=== PATIENT | female | born 1995 | race Caucasian/White ===

== ENCOUNTER 2023-03-05 10:02 | Emergency (ER) | payer OTHER, BC, SELFPAY ==
[2023-03-05 10:14] VITALS: BP 110/69; PULSE 64; RESP 16; TEMP 36.4; O2SAT 100
--- NOTE | 2023-03-05 10:20 | ED.WOUNDLAC ---
HPI - Wound/Laceration General Chief Complaint: Wound/Laceration Stated Complaint: Cat Bite Time Seen by Provider: 03/05/23 10:09 Source: patient Mode of arrival: ambulatory Limitations: no limitations History of Present Illness HPI narrative: Farnaz is a 27-year-old male patient presenting to the clinic today with complaints of a cat bite to the right index finger. She reports her cat bit her yesterday. Has close puncture wounds to the volar and dorsal index finger with redness and swelling. States her finger is throbbing. Tetanus is up-to-date per patient Related Data Home Medications Medication Instructions Recorded Confirmed escitalopram oxalate 10 mg tablet mg 03/05/23 Allergies Allergy/AdvReac Type Severity Reaction Status Date / Time amoxicillin Allergy Mild Hives Verified 03/05/23 10:14 Review of Systems Review of Systems: Pertinent positives per HPI. Patient denies any fever, chills, rash, headache, visual changes, dizziness, cough, runny nose, sore throat, shortness of breath, chest pain, palpitations, nausea, vomiting, diarrhea, constipation, abdominal pain, or any urinary issues. PMFSH Comments At the time of my signature, I reviewed and agree with the nursing past medical, surgical, social, and family history. There is no relevant family history pertinent to the patient complaint. Exam Narrative: General: Well-developed, well nourished, in no apparent distress Head: Normocephalic, atraumatic. Cardio: Regular rate and rhythm, s1 and s2 normal, no murmur appreciated. Resp: Clear to auscultation bilaterally, no rhonchi, rales, wheezing or rubs. Integumentary: [place], warm, and dry, intact without lesion, closed puncture wounds to the dorsal and volar aspect of the medial right index finger with redness, erythema, and swelling Course Course Emergency Course: Portions of this record may have been created with voice recognition software. Level of Care: Express Care Visit Vital Signs Vital signs: Vital Signs Temperature 36.4 C L 03/05/23 10:14 Pulse Rate 64 03/05/23 10:14 Respiratory Rate 16 03/05/23 10:14 Blood Pressure 110/69 03/05/23 10:14 Pulse Oximetry 100 03/05/23 10:14 Oxygen Delivery Room Air 03/05/23 10:14 Temperature 36.4 C L 03/05/23 10:14 Pulse Rate 64 03/05/23 10:14 Respiratory Rate 16 03/05/23 10:14 Blood Pressure 110/69 03/05/23 10:14 Pulse Oximetry 100 03/05/23 10:14 Oxygen Delivery Room Air 03/05/23 10:14 Vital signs reviewed MDM - Wound/Laceration MDM Narrative Medical decision making narrative: At the time of visit patient is resting comfortably on exam table. Patient is allergic to penicillin so prescription for doxycycline and metronidazole was sent to the pharmacy. Supportive measures were discussed with the patient she voiced understanding discharge instructions agrees to treatment plan. Differential Diagnosis Differential diagnosis: Likely other (Infected cat bite, puncture wound, wound infection) Discharge Plan Discharge Clinical Impression: Cat bite of finger Qualifiers: Encounter type: initial encounter Qualified Code(s): S61.259A - Open bite of unspecified finger without damage to nail, initial encounter Patient Disposition: Home, Self-Care Condition: Stable Instructions: Antibiotic Form, Animal Bite (ED) Additional Instructions: Take doxycycline and metronidazole as prescribed Keep wound clean and dry Watch for signs and symptoms of worsening infection- redness, streaking, swelling, purulent discharge, or increase in pain. Follow up with your PCP for suture removal or return to the Express care. Prescriptions: New doxycycline hyclate 100 mg capsule 100 mg PO BID 7 Days Qty: 14 0RF metronidazole 500 mg tablet 500 mg PO Q8H 7 Days Qty: 21 0RF No Action escitalopram oxalate 10 mg tablet Follow-up/Referrals: UNKNOWN,DOCTOR [Non-Staff] - Time of Dispos
== END 2023-03-05 10:27 | disposition home or self-care (01) ==
PROVIDERS: Emergency Provider Nurse Practitioner Family
DX: S61.230A Puncture wound without foreign body of right index finger without damage to nail, initial encounter (principal); W55.01XA Bitten by cat, initial encounter; F41.9 Anxiety disorder, unspecified
CPT/HCPCS: 99213; G0463

== ENCOUNTER 2025-01-31 04:36 | Emergency (ER) | payer OTHER, SELFPAY ==
--- OUTSIDE RECORDS SUMMARY | 2025-01-31 04:38 | XMS_ITS | Clinical Summary ---
Author Organization [facility] Address [address] [place] [address] Phone Care Team Providers Care Mixing Picker Tender Name Role Phone Daryl Powers MD Primary Care Provider [phone] Allergies Active Allergy Reactions Criticality Noted Date Comments Amoxicillin Hives High 06/09/2015 Medications escitalopram oxalate (LEXAPRO) 20 mg tabletIndication s:Generalized anxiety disorder with panic attacks Take 1 Tablet (20 mg) by mouth daily. 100 Tablet 3 11/18/2023 Active Active Problems Patient Care Coordination No te Formatting of this note migh t be different from the original. Permission to speak with Margot Martinez (mother) and Jl Beavers (father) 09/30/15 Problem Noted Date Diagnosed Date Primary insomnia 07/30/2019 Generalized anxiety disorder with panic attacks 04/06/2019 Overview (04/10/2020): - 2019: Episodes likely triggered by plans to go back to school - 03/2019: Started on Lexapro - 12/2019: In remission; and Lexapro stopped - 03/2020: Lexapro restarted when symptoms recurred Factor V Leiden 09/30/2015 Overview (09/30/2015): Tested because of mother's history. Resolved Problems Problem Noted Date Diagnosed Date Resolved Date Pilonidal cyst 12/05/2018 11/20/2023 Immunizations Immunization Administration Dates Next Due (ADACEL/BOOSTRIX)(10 YR UP) TDAP VACCINE, 0.5ML, IM 02/12/2018 Family History Medical History Relation Name Comments Hypertension Father Jl Beavers Other Mother Margot Martinez DVT history Relation Name Status Comments Father Jl Beavers Alive Mother Margot Martinez Alive Social History Tobacco Use Types Packs/Day Years Used Date Smoking Tobacco: Never Smokeless Tobacco: Never Tobacco Cessation:Counseling Given: No Alcohol Use Standard Drinks/Week Comments No 0 (1 standard drink = 0.6 oz pur e alcohol) Comments No Sex and Gender Information Value Date Recorded Sex Assigned at Not on file Legal Sex Female 11:17 AM CDT Gender Identity Not on file Sexual Orientation Not on file Last Filed Vital Signs Vital Sign Reading Time Taken Comments Blood Pressure 105/69 11/18/2023 11:14 AM CDT Pulse 70 11/18/2023 11:14 AM CDT Temperature 37.2 C (99 F) 12/05/2018 2:46 PM CDT Respiratory Rate 16 08/17/2022 9:48 AM 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 Oxygen Saturation 99% 11/18/2023 11:14 AM CDT Inhaled Oxygen Concentration - - Weight 93.4 kg (206 lb) 11/18/2023 11:14 AM CDT Height 170.2 cm (5' 7) 11/18/2023 11:14 AM CDT Body Mass Index 32.26 11/18/2023 11:14 AM CDT Plan of Treatment Health Maintenance Due Date Last Done Comments HEPATITIS B VACCINES (1 of 3 - 19+ 3-dose series) 2014 HPV/Cotest (-) 2016 CERVICAL CANCER SCREENING 05/07/2024 PAP SMEAR 05/07/2024 05/07/2021 (Prev iously completed) Preventative Visit- Commercial 07/18/2024 11/18/2023, 10/21/2023, 08/17/2022, Additional history exists INFLUENZA VACCINE (#1) 2025 08/17/2022 DTAP/TDAP/TD VACCINES (2 - Td or Tdap) 02/13/2028 02/12/2018 HPV VACCINES Aged Out No longer eligi ble based on patient's age to complete this topic Insurance [facility] [id number] Care Teams Mixing Picker Tender Relationship Specialty Start Date End Date Daryl Powers MD [address] [phone] PCP - General Internal Medicine 09/30/15
--- OUTSIDE RECORDS SUMMARY | 2025-01-31 04:38 | XMS_ITS | Continuity of Care Document ---
Author Organization [facility] Address [address] [place] [address] Phone Care Team Providers Care Tanning Solution Maker Name Role Phone Roel Espino MD Unavailable Unavailable Allergies, Adverse Reactions, Alerts Substance Reaction Status Criticality amoxicillin rash Active No Information Medications Medication Instructions Dosage Effective Dates (start - stop) Status Comments Mobic 15 mg tablet take 1 tablet by ora l route every day - Active Procedures Procedure Date RADEX KNE 3 VIEWS OFFICE/OUTPATIENT VISIT EST OFFICE/OUTPATIENT VISIT EST RADEX KNE 3 VIEWS OFFICE/OUTPATIENT VISIT NEW MU Reporting MU Reporting OFFICE/OUTPATIENT VISIT EST Advance Directives Directive Yes / No Effective Date File Name No Information Encounters Encounter Description Practice Location Reason(s) For Visit Diagnoses Date Provider Providers Copied on Encounter [facility], [address], [address], [place] tel:[phone] [facility] No Information 0 Kenzie Sevilla. [address] [place], [place], [id number] . tel: [phone] OFFICE/OUTPA TIENT VISIT EST [facility], [address], [place], [address], [place] tel:[phone] [facility] Pain in right kneePatellar tendinitis of right kneeBody mass index (BMI) 30.0-30.9, adult Aug-2 1-202 0 Fissel Roel. [address] [facility] [place], [place], [id number] . tel:[phone] OFFICE/OUTPA TIENT VISIT EST [facility], [address] [facility] [address] [address], [place], [address], [place] tel:[phone] [facility] Left knee pain, unspecified chronicity 0-201 9 Prakash Garcia. [address], [place], [place], [address] . tel:[phone] OFFICE/OUTPA TIENT VISIT NEW [facility], [address], [address], [place] tel:[phone] [facility] Left knee pain, unspecified chronicityBody mass index (BMI) 27.0-27.9, adult 9-201 9 Fissel Roel. [address] [facility], [place], [place], [id number] . tel:[phone] Referring Provider: Daryl De Jesus, [address] [facility] [address], [place], [address]. tel:[phone] [facility], [address] [address], [place], [address], [place] tel:[phone] [facility] Right knee pain (chief complaint) Pain in joint involving lower legChondromalacia of patella 5-201 2 Jesus Manuel Urena. [address] [facility], [place], [place], [address] . tel:[phone] Referring Provider: Jl De Jesus, [address] [place], [address] . tel:[phone] OFFICE/OUTPA TIENT VISIT EST [facility], [address] [address], [place], [address], [place] tel:[phone] [facility] right knee pain (chief complaint) Patellar tendinitis 2-201 2 Fissel Roel. [address] [facility], [place], [place], [address] . tel: [phone] Referring Provider: Jl De Jesus, [address], [place], [address] . tel:[phone] [facility], [address], [place], [address], tel:[phone] [facility] No Information 2 Jesus Manuel Urena. [address], [place], [place], [address] . tel: [phone] Family History Family Member Type Diagnosis Age At Onset Problem (finding) Family history of Facto r 5 Leiden Father Problem (finding) hypertension Mother Problem (finding) DVT Problem (finding) Family history of asthm a Payers Payer name Insurance type Covered constitution party ID Authoriza tion(s) Blue Access PPO E2 OT [id number] Social History Type Description Quantity Date Captured Comments Alcohol Use Details Unknown Caffeine Use Details Unknown Tobacco Use Status No Information Smoking Status No Information Sex Female Chief Complaint And Reason For Visit No Information Reason For Referral Reason For Referral No Information Plan Of Treatment Date Type Action Status Goal Lifestyle education regardin g diet completed Referral Ordered: RADEX KNE 3 VIEWS RT ordered Referral Ordered: RADEX KNE 3 VIEWS LT ordered Referral Ordered: RADEX KNE 3 VIEWS RT knee ordered History Of Present Illness Encounter Date Complaint History Of Prese nt Illness No Information Functional Status Date Functional Assessmen t No Information Instructions Date Instruction Additional Infor mation Discussed treatment options Rela david to Patellar tendinitis of right knee Call for increase in pain Relate d to Patellar tendinitis of right knee Giving encouragement to exercise Related to Body mass index (BMI) 30.0-30.9, adult Take medication as directed. Rel ated to Left knee pain, unspecified chronicity Discussed treatment options Rela david to Left knee pain, unspecified chronicity Call for increase in pain Relate d to Left knee pain, unspecified chronicity Lifestyle education regarding di et Related to Body mass index (BMI) 27.0-27.9, adult Home exercise program. Related t o Left knee pain, unspecified chronicity Discussed treatment options Rela david to Left knee pain, unspecified chronicity Call for increase in pain Relate d to Left knee pain, unspecified chronicity Take medication as directed. Rel ated to Left knee pain, unspecified chronicity Activity as tolerated Wear brace as instructed Assessments Type Assessment Date No Information Patient Care Teams Name Effective Dates (start - stop) Status Members No Information
--- OUTSIDE RECORDS SUMMARY | 2025-01-31 04:38 | XMS_ITS | Data Portability ---
Author Organization [facility] [place] Address [address] [place] [address] Care Team Providers Care Wafer Fabrication Technician Name Role Phone REYNALDO MATA Primary Care Provider Assessment Encounter Date Assessment Date Assessment LastModified by Organization Details LastModified Time 06/27/2024 06/27/2024 Annual gynecological exam performed. Patient will come back in a year unless there are new symptoms. [email or web address] Not available 06/27/2024 10:33:59 Plan of Treatment Reminders Order Date Submit Date Provider Last Modified By Organization Details Last Modified Time Details Appointments [facility] 2024 09:30A M BRIDGETTE BOLAÑOS NP Not available Not available Not available Lab pap, IG + HR HPV - HPV regardles s but if HPV is positive need subtyping 16,18/45 2023 12 024 [facility] (Lab), [address] [facility], [place], [address], 07/07/2024 05:07:01 Referral None recorded. Procedures None recorded. Surgeries None recorded. Imaging None recorded. Medication Orders None recorded. Patient TargetsNo targets recorded. Patient InstructionsNo instructions recorded. Reason for Referral None Reported. Results Created Date Observation Date Name Description Value Unit Range Abnormal Flag Note LastModifiedBy Organization Detail LastModifiedTime 06/27/20 24 06/27/2024 IMAGE GUIDE D PAP AND HPV REGAR DLESS image guided Pap, HPV regardless of Pap result SEE RESULT S BELOW CASE REPOR T: Cytol ogy Gynec ologi brayden Repor t Case: [id number] Autho clarence fabian Provi rico: Dermo dy, Bridgette , ANP, DEPALLETIZER OPERATOR Colle cted: 06/27 1000 Order ing Locat ion: [place] [facility]o shahriar Recei roxanne: 06/28 0146 First Ezra n: Rishi soni, Albert whitley, CT Speci men: Ezra german Pap - Image d, Cervi x STATE MENT OF ADEQU ACY: Satis facto ry for evalu ation Trans forma tion zone compo nent prese nt ----- ----- ----- ----- ----- ----- ----- ----- ----- ----- ----- ----- ----- ----- ----- ----- ----- ---- FINAL DIAGN OSIS: Negat andrae for Intra epith elial Randa saavedra or Radha forte (NIL) . 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 COMME NT: This speci men was revie wed by a Cytot echno logis t and/o r Patho logis t (as indic ated in this repor t) after evalu ation using the Thinp rep Imagi ng Syste m. CLINI BRAYDEN INFOR MATIO N: Menst rual Statu s: LMP (if appli cable ): Clini brayden Histo ry/Pr eviou s Pap: Type of Neopl valentina (if appli cable ): Signi fican t Clini brayden Findi ngs: Other Histo ry: Hormo marc (if appli cable ): PAP EDUCA TYRA L NOTE: The Pap Test is a scree monserrat test with an inher ent false negat andrae rate. Liqui d-bas ed sampl ing may decre ase, but will not elimi romel, false negat andrae resul ts. A negat andrae resul t does not precl ude the prese nce and/o r devel opmen t of disea se, since the prese nce of abnor mal cells in the sampl e depen ds on the locat ion of the lesio n and sampl ing techn ique. Ambreen nued regul ar scree monserrat is the best metho d of cance r preve ntion . If repor david cytol ogic findi ng do not corre late with physi brayden and/o r histo rical findi ngs, furth er inves tigat ion is recom blessing d, as clini orly warra nted. Not Available [facility] (Lab) [address] [facility], [place], [address], 07/07/2024 05:07:01 Result Notes None recorded. Medical Equipment None Reported. Allergies Allergen ID Allergen Name Allergen Category Reaction Reaction Severity Criticality Documentation Date Start Date Code Code System Note Provider Name and Address Organization Details Recorded Time 14007 amoxicill in medicatio n hives mild Not available 06/27/2024 723 RxNorm Kisha Lockwood [facility] 10:26:39 Medications Name Sig Start Date Stop Date Status Note LastModified by Organization Details LastModified Time escitalopram 10 mg tablet 2023 completed Not Available Not Available Not Available escitalopram 20 mg tablet active Not Available Not Available Not Available Vitals Date Recorded Body height Body mass index (BMI) Body weight Systolic And Diastolic Provider Name and Address Organization Details Last Updated DateTime 06/27/2024 170.18 cm 33 kg/m2 40609.99 g 108/77 mm[Hg] Kisha Lockwood [facility] 06/27/2024 10:30:04 Social History Question Answer Notes LastModified by Organizat ion Details LastModified Time Do You Have An Advance Directive? No [email or web address] Information n ot available 06/27/2024 Are You Blind Or Do You Have Difficulty Seeing? No [email or web address] Information not available 06/27/2024 What Is Your Level Of Caffeine Consumption? Moderate [email or web address] Information not available 06/27/2024 How Much Tobacco Do You Chew? None [email or web address] Information not available 06/27/2024 In The 14 Days Before Symptom Onset, Have You Had Close Contact With A Laboratory-confirme d COVID-19 While That Case Was Ill? No [email or web address] Information n ot available 06/27/2024 In The 14 Days Before Symptom Onset, Have You Had Close Contact With A Person Who Is Under Investigation For COVID-19 While That Person Was Ill? No [email or web address] Information not available 06/27/2024 Have You Been To An Area Known To Be High Risk For COVID-19? No [email or web address] Information not available 06/27/2024 Are You Deaf Or Do You Have Serious Difficulty Hearing? No [email or web address] Information not available 06/27/2024 What Type Of Diet Are You Following? REGULAR [email or web address] Information n ot available 06/27/2024 What Is The Highest Grade Or Level Of School You Have Completed Or The Highest Degree You Have Received? [id number] [email or web address] Information not available 06/27/2024 Are There Any Guns Present In Your Home? Yes Information not available 06/27/2024 Do You Use Protection During Sex? No [email or web address] Information not available 06/27/2024 Do You Use Your Seat Belt Or Car Seat Routinely? Yes [email or web address] Information not available 06/27/2024 Do You Have Smoke And Carbon Monoxide Detectors In Your Home? Yes [email or web address] Information not available 06/27/2024 How Much Tobacco Do You Smoke? No [email or web address] Information not available 06/27/2024 Do You Use Sunscreen Routinely? Yes [email or web address] Information not available 06/27/2024 Have You Used IV Drugs? No [email or web address] Information not available 06/27/2024 Sex: Unknown Functional Status Question Answer Note LastModified by Organizat ion Details LastModified Time Do you use any illicit or recreational drugs? No [email or web address] Information not available 06/27/2024 What is your level of alcohol consumption? None [email or web address] Information not available 06/27/2024 Are you able to walk? 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 None [email or web address] Information not available 06/27/2024 Mental Status Question Answer Note LastModified by Organization D etails LastModified Time Do you feel stressed (tense, restless, nervous, or anxious, or unable to sleep at night)? [id number] Information not available 06/27/2024 Family History Relationship Description Onset Age of this Age Resolved Age Notes LastModified by Organization Details LastModified Time Mother Blood coagulation disorder [email or web address] Not available 2023 10:26:39 Maternal Aunt Blood coagulation disorder [email or web address] Not available 2023 10:26:39 Maternal Grandmother Blood coagulation disorder [email or web address] Not available 2023 10:26:39 Maternal Grandfather Blood coagulation disorder [email or web address] Not available 2023 10:26:39 Maternal Grandfather Malignant neoplasm of liver [email or web address] Not available 2023 10:37:07 Father Hypertensive disorder [email or web address] Not available 2023 10:26:39 Paternal Grandfather Malignant neoplasm of prostate [email or web address] Not available 2023 10:36:57 Medical History Condition Response Anxiety Disorder Y Hematologic disorders Y Gynecological History Statement/Question Response Flow Moderate Date of LMP 06/19/2024 On BCP's at Conception? N N Was last menstrual period normal Y STIs/STDs N HPV Vaccine Y Duration of Flow (days) 3 Current Control Method None Frequency of Cycle (Q days) 4 Sexually Active? Y Age of first menstrual cycle 13 Date of Last Pap Smear Sexual Problems? N LMP Definite N Obstetrics History GPAL:G 0 P 0 0 0 0 Past Encounters Encounter ID Performer Location Encounter Start Date Encounter Closed Date Diagnosis/Indication Diagnosis SNOMED-CT Code Diagnosis ICD10 Code Diagnosis Note [id number] Winston Olivares MD [place] [address] [address] 06/27/2024 10:19:22 06/27/2024 10:51:15 Gynecologic examination 17561457 Z01.419 Annual gynecologi brayden exam performed. Patient will come back in a year unless there are new symptoms. Suggest Calcium with Vitamin D if not eating in diet. Patient advised to get annual flu shot. Recommend yearly physicals and perform monthly breast exams. Genetic testing is available for patients with family history of cancer. Engage in safe sexual practices, use condoms. Encouraged to have daily exercise. Avoid tobacco and illicit drugs, moderation of alcohol. If BMI greater than 25 dietary consult advised. If you have any questions please call or email. Pap smear - pap w/ HPV collected STI testing - declined Health Concerns Section Related Observation LastModified by Organization Detai ls LastModified Time None Recorded Concern Status LastModified by Organization Details LastModified Time None Recorded Advance Directives Directive N: Payers Insurance Date Sequence Insurance Name Policy Number Policy Cook Covered Member ID Cook Member ID Guarantor Name 06/27/2024 1 [employer] (PPO) Farnaz De La Torre [id number] Farnaz De La Torre 06/30/2024 1 [facility] - [employer] - [employer] (PPO) [id number] Farnaz De La Torre [id number] Farnaz De La Torre Notes Date Note Type Note Provider Name and Address Organization Details Recorded Time 06/27/2024 text/html Annual GYNReport ed bypatient.Menstrua l cycle:Normal menses Urinary symptoms:No hematuria; No incontinence Vulva:No genital lesion Vagina:Normal vaginal discharge Breast:No breast pain; No breast lump; No nipple discharge Current Contraception:Cond oms; Not on control - uses condoms Sexual complaints:No sexual complaints; No pain during intercourse; Normal libido Menopausal Symptoms:No menopausal symptoms; Normal vaginal lubrication Psychological symptoms:No depression; No anxiety; No PMDD New patient presents to establish care.Hx Factor V Leiden - prefers to not be on hormonal BC. Uses condoms.Denies concerns today. Kisha churchill [place] - [facility] 06/27/2024 10:49:15 OBGyn Episode No OBEpisode recorded.
[2025-01-31 04:40] VITALS: BP 124/74; PULSE 88; RESP 13; TEMP 36.5; O2SAT 99
--- NOTE | 2025-01-31 05:11 | ED.ANIMALBIT ---
HPI - Animal Bite General Chief Complaint: Animal Bite Stated Complaint: Racoon bite Time Seen by Provider: 01/31/25 04:51 History of Present Illness HPI narrative: 29-year-old female presenting to the ER for recommend bite that occurred just prior to arrival. Very superficial bites to the left inner thigh. Patient was trying to get her dog away from the raccoon and inadvertently got bitten. Unclear if her tetanus is up-to-date. Never had rabies shots or vaccines before. No systemic symptoms, no bleeding, was otherwise in her normal state of health. Related Data Home Medications ?Medication ?Instructions ?Recorded ?Confirmed ?Last Taken ?Type escitalopram oxalate 10 mg tablet mg 03/05/23 Unknown History Allergies Allergy/AdvReac Type Severity Reaction Status Date / Time amoxicillin Allergy Mild Hives Verified 03/05/23 10:14 Review of Systems Review of Systems: As reviewed above in HPI Exam Narrative: GENERAL: [Well-appearing, well-nourished, and in no acute distress.] HEAD: [Normocephalic, atraumatic.] EYES: [PERRLA and EOMI.] ENT: Nares clear, no rhinorrhea or epistaxis. Mucous membranes moist. NECK: Supple. CHEST: [Clear to auscultation. No respiratory distress.] HEART: [Regular rate and rhythm]. No murmur heard. [Normal peripheral pulses.] ABDOMEN: [Soft, nondistended], [nontender], [No rigidity or guarding] EXTREMITIES: Normal range of motion. [No edema.] SKIN: Left inner thigh has 2 linear areas of puncture/skin avulsion without any overlying cellulitis from erythema. No tenderness to palpation. No streaking redness. NEURO: [No focal deficits]. Alert and oriented [x3.] PSYCH: [Normal mood and affect.] Course Vital Signs Vital signs: Vital Signs Temperature 36.5 C 01/31/25 04:40 Pulse Rate 88 01/31/25 04:40 Respiratory Rate 13 01/31/25 04:40 Blood Pressure 124/74 01/31/25 04:40 Pulse Oximetry 99 01/31/25 04:40 Oxygen Delivery Room Air 01/31/25 04:40 Temperature 36.5 C 01/31/25 04:40 Pulse Rate 88 01/31/25 04:40 Respiratory Rate 13 01/31/25 04:40 Blood Pressure 124/74 01/31/25 04:40 Pulse Oximetry 99 01/31/25 04:40 Oxygen Delivery Room Air 01/31/25 04:40 MDM - Animal Bite MDM Narrative Medical decision making narrative: 29-year-old female presenting to the ER for recommend bite that occurred just prior to arrival. Very superficial bites to the left inner thigh. Patient was trying to get her dog away from the rac[place]on and inadvertently got bitten. Unclear if her tetanus is up-to-date. Never had rabies shots or vaccines before. No systemic symptoms, no bleeding, was otherwise in her normal state of health. Left inner thigh has 2 linear areas of puncture/skin avulsion without any overlying cellulitis from erythema. No tenderness to palpation. No streaking redness. Patient will have her tetanus updated here and we discussed rabies vaccine series and immunoglobulin injection. Patient wanted to proceed with this given the high risk exposure. Patient was given 20 units/kilogram of immunoglobulin injected around the wound and the remainder into the opposite arm of the vaccine injection. She will need to get rabies vaccines and day 3, 7, 14 and our infectious disease specialist will help arrange this. Prescription filled for the vaccine. Medical Records Attestation: I reviewed the patient's medical records. Discharge Plan Discharge Clinical Impression: Bitten by raccoon Patient Disposition: Home Condition: Stable Instructions: Antibiotic Form, Animal Bite (ED) Additional Instructions: You will need the remainder of the vaccine series on days 3, 7, 14. Our Infectious Disease specialist will reach out to you to get this arranged on outpatient basis. We will also send you with a prescription for it if you wish to go at another facility to get this done. Patient Language: Mohawk Prescriptions: No Action escitalopram oxalate 10 mg tablet doxycycline hyclate 100 mg capsule 100 mg PO BID 7 Days Qty: 14 0RF metronidazole 500 mg tablet 500 mg PO Q8H 7 Days Qty: 21 0RF Follow-up/Referrals: PHYSICIAN,INCIDENT RESPONSE LEAD [Primary Care Provider] - Time of Disposition: 05:16
--- OUTSIDE RECORDS SUMMARY | 2025-01-31 05:14 | XMS_ITS | Clinical Summary ---
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
--- OUTSIDE RECORDS SUMMARY | 2025-01-31 05:14 | XMS_ITS | Continuity of Care Document ---
Author Organization [facility] Address [address] [place] [address] Phone Care Team Providers Care Older Worker Specialist Name Role Phone Roel Espino MD Unavailable [...] Providers Copied on Encounter [facility], [address], [address], [place] tel:[phone] [facility] No Information 0 Kenzie Sevilla. [address] [place], [place], [id number] . tel: [phone] OFFICE/OUTPA TIENT VISIT EST [facility], [address], [place], [address], [place] tel:[phone] [facility] Pain in right kneePatellar tendinitis of right kneeBody mass index (BMI) 30.0-30.9, adult Aug-2 1-202 0 Fissel Roel. [address] [facility] [place], [place], [id number] . tel:[phone] OFFICE/OUTPA TIENT VISIT EST [facility], [address] [facility] [address] [address], [place], [address], [place] tel:[phone] [facility] Left knee pain, unspecified chronicity 0-[address] [facility] [address] [facility] [address], [place], [place], [id number] . tel:[phone] OFFICE/OUTPA TIENT VISIT NEW [facility], [address], [address], [place] tel:[phone] [facility] Left knee pain, unspecified chronicityBody mass index (BMI) 27.0-27.9, adult 9-201 9 Fissel Roel. [address] [facility], [place], [place], [id number] . tel:[phone] Referring Provider: Daryl De Jesus, [address] [facility] [address], [place], [address]. tel:[phone] [facility], [address] [address], [place], [address], [place] tel:[phone] [facility] Right knee pain (chief complaint) Pain in joint involving lower legChondromalacia of patella 5-201 2 Jesus Manuel Urena. [address] [facility], [place], [place], [address] . tel: [phone] Referring Provider: Jl De Jesus, [address] [place], [address] . tel:[phone] OFFICE/OUTPA TIENT VISIT EST [facility], [address] [address], [place], [address], [place] tel:[phone] [facility] right knee pain (chief complaint) Patellar tendinitis 2-201 2 Fissel Roel. [address] [facility], [place], [place], [address] . tel: [phone] Referring Provider: Jl De Jesus, [address], [place], [address] . tel:[phone] [facility], [address], [place], [address], tel:[phone] [facility] No Information 2 Jesus Manuel Urena. [address], [place], [place], [id number] . tel: [phone] Family History Family Member Type Diagnosis Age At Onset Problem (finding) Family history of Facto r 5 Leiden Father Problem (finding) hypertension Mother Problem (finding) DVT Problem (finding) Family history of asthm a Payers Payer name Insurance type Covered republican ID Authoriza tion(s) Blue Access PPO E2 OT [id number] Social History Type Description Quantity Date Captured [...]
[2025-01-31] MEDS: TETANUS,DIPHTHERIA,AC PERTUSSIS ADULT (0.5 ML) BOOSTRIX IM (05:43)
[2025-01-31] MEDS: RABIES VACCINE (RABAVERT) 2.5 UNITS VIAL IM (05:44)
[2025-01-31] MEDS: RABIES IMMUNE GLOBULIN/PF 1,500 UNITS/5 ML VIAL 1500 UNITS IM (05:46)
[2025-01-31 06:31] VITALS: BP 109/84; PULSE 83; RESP 16; O2SAT 99
[2025-01-31 06:32] VITALS: BP 109/84; PULSE 83; RESP 16; O2SAT 99
== END 2025-01-31 06:34 | disposition home or self-care (01) ==
PROVIDERS: Emergency Provider Student in an Organized Health Care Education/Training Program
DX: S71.152A Open bite, left thigh, initial encounter (principal); Z23 Encounter for immunization; Z29.14 Encounter for prophylactic rabies immune globulin; W55.51XA Bitten by raccoon, initial encounter
CPT/HCPCS: 90375; 90471; 90472; 90675; 90715; 96372; 99284